=== PATIENT | female | born 1990 | race Two or more races ===

== ENCOUNTER 2016-06-24 10:13 | Emergency (ER) | payer OTHER ==
[~2016-06-24] VITALS: Ht 165.1 cm; Wt 61.0 kg
[2016-06-24 10:54] LABS: PATH.CAST-FLAG NOT PRESENT; SPERM-FLAG NOT PRESENT; SRC-FLAG NOT PRESENT; XTAL-FLAG NOT PRESENT; YLC-FLAG NOT PRESENT
[2016-06-24 11:26] LABS: BLOOD UREA NITROGEN 11 mg/dL (7-18)
[2016-06-24 12:36] VITALS: BP 106/48
== END 2016-06-24 12:38 | disposition home or self-care (01) ==
LOC: ED 12:06
DX: O26.891 Other specified pregnancy related conditions, first trimester (principal); R10.9 Unspecified abdominal pain
CPT/HCPCS: 36415; 76801; 80048; 81001; 82040; 84702; 85025; 86901

== ENCOUNTER 2016-07-17 19:40 | Emergency (ER) | payer OTHER ==
[~2016-07-17] VITALS: Ht 160 cm; Wt 61.1 kg
[2016-07-17 19:42] VITALS: BP 109/66
== END 2016-07-17 21:40 | disposition home or self-care (01) ==
LOC: ED 20:55
DX: O20.0 Threatened abortion (principal)
CPT/HCPCS: 36415; 76801; 81001; 84702; 86901

== ENCOUNTER 2016-08-06 11:48 | Emergency (ER) | payer OTHER ==
[~2016-08-06] VITALS: Ht 149.9 cm; Wt 62.0 kg
[2016-08-06] MEDS ORDERED: ACETAMINOPHEN 325 MG TABLET PO ONE (12:30)
[2016-08-06] MEDS ORDERED: ACETAMINOPHEN 325 MG TABLET ONE (12:33)
[2016-08-06 13:35] LABS: PATH.CAST-FLAG NOT PRESENT; SPERM-FLAG NOT PRESENT; SRC-FLAG NOT PRESENT; XTAL-FLAG NOT PRESENT; YLC-FLAG NOT PRESENT
[2016-08-06 14:45] VITALS: BP 95/64
== END 2016-08-06 15:12 | disposition home or self-care (01) ==
LOC: ED 13:23
DX: O20.0 Threatened abortion (principal); Z3A.12 12 weeks gestation of pregnancy; O26.891 Other specified pregnancy related conditions, first trimester; R10.2 Pelvic and perineal pain
CPT/HCPCS: 36415; 76801; 81001; 85025; 87086; 99285

== ENCOUNTER 2016-08-09 22:57 | Emergency (ER) | payer OTHER ==
[~2016-08-09] VITALS: Ht 149.9 cm; Wt 60.8 kg
[2016-08-10 01:53] VITALS: BP 99/58
== END 2016-08-10 01:57 | disposition home or self-care (01) ==
LOC: ED 23:59
DX: O23.41 Unspecified infection of urinary tract in pregnancy, first trimester (principal); Z3A.13 13 weeks gestation of pregnancy
CPT/HCPCS: 36415; 76801; 81001; 85025; 86901; 87086; 99285

== ENCOUNTER 2016-09-11 08:24 | Emergency (ER) | payer MEDICAID, OTHER ==
[~2016-09-11] VITALS: Ht 152.4 cm; Wt 61.6 kg
[2016-09-11] MEDS ORDERED: SODIUM CHLORIDE FLUSH 10ML SYR IVF ONE (09:30)
[2016-09-11 09:47] LABS: ASPARTATE AMINO TRANSFERASE 12 U/L (15-37); BLOOD UREA NITROGEN 10 mg/dL (7-18)
[2016-09-11 12:02] VITALS: BP 105/56
== END 2016-09-11 12:04 | disposition home or self-care (01) ==
LOC: ED 09:01
DX: O99.612 Diseases of the digestive system complicating pregnancy, second trimester (principal); Z3A.18 18 weeks gestation of pregnancy
CPT/HCPCS: 36415; 76700; 80053; 81001; 83690; 85025; 87086; 99285